=== PATIENT | female | born 1980 | race Caucasian/White ===

== ENCOUNTER → 2018-09-01 | Outpatient (CLI) | payer BC, OTHER ==
--- NOTE | 2018-09-01 09:19 | 2DMMODE ---
[facility] [address] [place] [address] 2 D/M-MODE ECHOCARDIOGRAM Name: JAELYN LOPEZ Room #: REG [facility]#: [id number] ������������� Admission: 09/01/18 ������������� Attend Phys: Julius Mcgrath Discharge: ��� ������������� ��� Date of : 84 Date of Service: 09/01/18 0919 �� Report #: [id number] �������� ��������������������������������������������[id number] THIS REPORT FOR: //name// APPROVED REPORT Study performed: 09/01/2018 08:08:07 EXAM: Comprehensive 2D, Doppler, and color-flow Echocardiogram Patient Location: Out-Patient Room #: Echo Lab 2 Status: routine BSA: 1.93 HR: 65 bpm BP: 120/78 mmHg Rhythm: NSR Other Information Study Quality: Good Indications Chest Pain Sinus Tachycardia 2D Dimensions RVDd: 25.92 mm IVSd: 9.76 (7-11mm) LVOT Diam: 19.55 (18-24mm) LVDd: 44.63 mm PWd: 8.82 (7-11mm) Ascending Ao: 28.42 (22-36mm) LVDs: 30.20 (25-40mm) Aortic Root: 29.28 mm Volumes Left Atrial Volume (Systole) Single Plane 4CH: 16.66 mL Single Plane 2CH: 44.61 mL LA ESV Index: 16.00 mL/m2 Aortic Valve AoV Peak Jh.: 1.24 m/s AO Peak Gr.: 6.16 mmHg LVOT Max P.79 mmHg LVOT Max V: 0.83 m/s BE Vmax: 2.02 cm2 Mitral Valve E/A Ratio: 1.8 MV Decel. Time: 175.55 ms [facility] [address] [place] [address] 2 D/M-MODE ECHOCARDIOGRAM Name: JAELYN LOPEZ Room #: [facility]#: [id number] ������������� Admission: 09/01/18 ������������� Attend Phys: Julius Mcgrath Discharge: ��� ������������� ��� Date of : 84 Date of Service: 09/01/18 0919 �� Report #: [id number] �������� ��������������������������������������������[id number] MV E Max Jh.: 0.76 m/s MV A Jh.: 0.43 m/s MV PHT: 50.91 ms IVRT: 73.82 ms Pulmonary Valve PV Peak Jh.: 0.75 m/s PV Peak Gr.: 2.24 mmHg Pulmonary Vein P Vein S: 0.43 m/s P Vein A: 0.22 m/s P Vein D: 0.45 m/s P Vein A Dur.: 87.7 msec P Vein S/D Ratio: 0.96 Tricuspid Valve TR Peak Jh.: 1.51 m/s TR Peak Gr.: 9.12 mmHg PA Pressure: 14.00 mmHg Left Ventricle The left ventricle is normal size. There is normal LV segmental wall motion. There is normal left ventricular wall thickness. The left ventricular systolic function is normal. The left ventricular ejection fraction is within the normal range. LVEF is 55%. The left ventricular diastolic function is normal. Right Ventricle The right ventricle is normal size. The right ventricular systolic function is normal. Atria The left atrium size is normal. The right atrium size is normal. Aortic Valve The aortic valve is normal in structure. No aortic regurgitation is present. There is no aortic valvular stenosis. Mitral Valve The mitral valve is normal in structure. Mild mitral regurgitation. No evidence of mitral valve stenosis. Tricuspid Valve The tricuspid valve is normal in structure. Mild tricuspid regurgitation with normal pulmonary pressures. Pulmonic Valve [facility] [address] [place] [address] 2 D/M-MODE ECHOCARDIOGRAM Name: JAELYN LOPEZ [id number] ������������� Admission: 09/01/18 ������������� Attend Phys: Julius Mcgrath Discharge: ��� ������������� ��� Date of : 84 Date of Service: 09/01/18 0919 �� Report #: [id number] �������� ��������������������������������������������[id number] The pulmonary valve is normal in structure. Mild pulmonic regurgitation. Great Vessels The aortic root is normal in size. The ascending aorta is normal in size. IVC is normal in size and collapses >50% with inspiration. Pericardium There is no pericardial effusion. <Conclusion> The left ventricle is normal size. The left ventricular systolic function is normal. The left ventricular ejection fraction is within the normal range. LVEF is 55%. The aortic valve is normal in structure. No aortic regurgitation is present. There is no aortic valvular stenosis. The mitral valve is normal in structure. The tricuspid valve is normal in structure. There is no pericardial effusion. ��������������������������������������������� <ELECTRONICALLY SIGNED> ���������������������������������������� By: Julius Mcgrath MD ��������������������������������������������� 09/01/18918 8 8 Julius Mcgrath MD /INF
== END ==
LOC: CV 07:54
DX: I08.8 Other rheumatic multiple valve diseases (principal); R00.0 Tachycardia, unspecified; R07.9 Chest pain, unspecified